=== PATIENT | male | born 1965 | race American Indian/Alaskan Native ===

== ENCOUNTER 2025-04-11 08:54 | Emergency (ER) | payer BC, SELFPAY ==
--- NOTE | ~2025-04-11 | XR_ITS ---
EXAMINATION: XR KNEE, LEFT CLINICAL INFORMATION: PAIN L KNEE COMPARISON: None available. TECHNIQUE: AP oblique and lateral views of the left knee. FINDINGS: No acute cortical disruption or malalignment. No suprapatellar bursa joint effusion. No lytic or blastic lesions. Asymmetric joint space narrowing involving medial compartment. No subcutaneous emphysema. No metallic or radiopaque foreign body. XR/XR knee LT 4V IMPRESSION: No acute fracture or dislocation. Mild medial compartment osteoarthrosis/osteoarthritis. Electronically signed by: Ryley Desai MD 04/11/2025 09:29 AM EST
[2025-04-11 09:03] VITALS: BP 168/89; PULSE 70; RESP 18; O2SAT 97; BMI 34.5
--- NOTE | 2025-04-11 09:29 | ED_ITS ---
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 He states the pain has not changed in character however keeps him up at night, prompting him to come to the emergency department today. He has not been evaluated for this knee pain over the last few years. He has been taking Motrin intermittently with temporary improvement. The last dose of Motrin was about a week ago. Denies any injury or trauma. 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 Denies any swelling or skin changes to the knee. Denies fever/chills. Denies hx gout, DM. Denies hx IVDU. Related Data Previous Rx's ?Medication ?Instructions ?Recorded diclofenac sodium 1 % topical gel 4 g topical QID PRN pain (scale 04/11/25 score 4-6) #100 grams Allergies Allergy/AdvReac Type Severity Reaction Status Date / Time aspirin Allergy Swelling Verified 04/11/25 09:05 Review of Systems Review of Systems: Yes all other systems are reviewed and are negative PMFSH Past Medical History Attestation statement: The following information was validated with the patient. Source: old records reviewed and nursing notes reviewed Social History Social History Advance Directives: No Advance Directives Information Provided: Yes Physical Exam Vital Signs: Vital Signs: Last Vital Signs Temp 98.6 F 04/11/25 10:33 Pulse 70 04/11/25 10:33 Resp 18 04/11/25 10:33 BP 168/89 H 04/11/25 10:33 Pulse Ox 97 04/11/25 10:33 O2 Del Method Room Air 04/11/25 10:33 BMI result Body Mass Index 34.5 hypertensive, vitals are otherwise stable. General: Well appearing, in no acute distress. Skin: Warm, dry, intact. No rashes or lesions. Head: Normocephalic, atraumatic. EENT: Hearing is intact b/l. Conjunctiva clear. Sclera is anicteric. PERRLA. EOM intact. Moist mucous membranes.? Cardiac: Chest wall symmetric. RRR Lungs: Normal respiratory effort without accessory muscle use. CTA bilaterally Back: No midline spinous or paraspinal tenderness. No step off deformity. Ext: +left knee without overlying skin changes/ deformity. no overlying wounds. full active ROM of left knee without reported pain. no palpable deformity, fluctuance, warmth, tenderness. no calf tenderness. no pitting edema. strong dp pulse. Neuro: AOx3. Normal speech. Ambulating with steady gait Course Course Course Narrative: X-ray left knee showing mild medial compartment osteoarthritis. There is no fracture or significant joint effusion. His exam is quite unremarkable. He has had symptoms for over 2 years now. Medicated with Tylenol in the ED. It states that he has an aspirin allergy however has been taking Motrin for some time. Will send him home with diclofenac gel for pain control. Patient has remained stable throughout ED visit today. Discussed worrisome signs and symptoms and when to return to the ED. All questions answered at this time. Patient is agreeable with disposition and stable for discharge. Medications Administered Discontinued Medications Generic Name Dose Route Start Last Admin Trade Name Freq PRN Reason Stop Dose Admin Acetaminophen 975 mg 04/11/25 09:42 04/11/25 10:13 Acetaminophen 325 Mg Tablet PO 04/11/25 09:43 975 mg ONCE ONE Administration Medical Decision Making Medical Decision Making [facility] Narrative: 60-year-old [place]an-speaking male presents to the ED today for evaluation of left knee pain x 2.5 years. Patient is hypertensive, afebrile. He is generally well-appearing and in no acute distress. Lying comfortably on the exam bed. On exam, left knee without overlying skin changes/ deformity. no overlying wounds. full active ROM of left knee without reported pain. no palpable deformity, fluctuance, warmth, tenderness. no calf tenderness. no pitting edema. strong dp pulse. He is ambulating with steady gait. Differential diagnosis includes MSK sprain/strain, osteoarthritis, tendonitis, bursitis. Unlikely gout, pseudogout, septic joint, septic arthritis, Lyme arthritis. Unlikely fracture, dislocation. Unlikely popliteal cyst, DVT, neurovascular compromise, threat to limb, compartment syndrome. Plan for x-rays, pain control and likely discharge home with pain meds. Differential Diagnosis Differential Diagnoses: The differential diagnosis associated with the presentation includes As above Admission/Observation Not indicated Independent Interpretation I performed an independent interpretation of an: Plain X-Ray Interpretation: X-ray left knee without acute fracture, no significant joint effusion Radiology Impression Discussion of test interpretation with radiology: I have reviewed the radiologist's reading. Radiologist Impression: EXAMINATION: XR KNEE, LEFT CLINICAL INFORMATION: PAIN L KNEE COMPARISON: None available. TECHNIQUE: AP oblique and lateral views of the left knee. FINDINGS: No acute cortical disruption or malalignment. No suprapatellar bursa joint effusion. No lytic or blastic lesions. Asymmetric joint space narrowing involving medial compartment. No subcutaneous emphysema. No metallic or radiopaque foreign body. XR/XR knee LT 4V IMPRESSION: No acute fracture or dislocation. Mild medial compartment osteoarthrosis/osteoarthritis. Electronically signed by: Ryley Desai MD 04/11/2025 09:29 AM EST Prescription Management I considered prescription management with: Pain Medication (diclofenac gel) Social Determinants Patient?s care significantly limited by Social Determinants of Health including: Other Social Determinant of Health Critical Care Time Critical Care Time Critical Care Time: No Discharge Plan Discharge Clinical Impression: Osteoarthritis Patient Disposition: Home, Self-Care Instructions: Osteoarthritis (ED) Additional Instructions: You were evaluated in the ED today for your left knee pain. The xray of your left knee shows arthritic changes. I am sending diclofenac gel to your pharmacy. Apply this to your knee as needed for pain control. I am also sending some prednisone to your pharmacy. Take this over the next 5 days. Return with any new or worsening symptoms. In the case of an emergency call 911. Prescriptions: New diclofenac sodium 1 % gel 4 g topical QID PRN (Reason: pain (scale score 4-6)) Qty: 100 0RF Rx Instructions: apply to single knee, ankle, foot; for foot includes sole/toes/top of foot Referrals: Physician,None [Primary Care Provider, Medical] Interventions: ED Discharge Assessment Last Done: 04/11/25 10:33 Discharge Date/Time: 04/11/25 10:34 Print Language: [place]an
[2025-04-11 10:33] VITALS: BP 168/89; PULSE 70; RESP 18; TEMP 37; O2SAT 97
== END 2025-04-11 10:34 | disposition home or self-care (01) ==
PROVIDERS: Emergency Provider Emergency Medicine
DX: M17.12 Unilateral primary osteoarthritis, left knee (principal)
CPT/HCPCS: 73564; 99283

== ENCOUNTER → 2025-04-11 09:20 | Outpatient (BNV) | payer BC, SELFPAY | PROVIDERS: Emergency Provider Emergency Medicine; Visit Provider Radiology Diagnostic Radiology | DX: M17.12 Unilateral primary osteoarthritis, left knee (principal) | CPT/HCPCS: 73564 ==